=== PATIENT | female | born 1950 | race American Indian/Alaskan Native ===

== ENCOUNTER 2017-04-20 05:55 | Inpatient (IN) | payer MEDICARE ==
--- NOTE | 2017-04-14 09:56 | Anesthesia Consultation ---
Anesthesia Consult and Med Hx Date of service: 04/20/17 - Airway Anesthetic Teeth Evaluation: Dentures ROM Head & Neck: Adequate Mental/Hyoid Distance: Adequate Mallampati Class: Class III Intubation Access Assessment: Probably Good - Pulmonary Exam CTA: Yes - Cardiac Exam Cardiac Exam: RRR - Pre-Operative Health Status ASA Pre-Surgery Classification: ASA3 Proposed Anesthetic Plan: General, Epidural Nerve Block: adductor canal - Pulmonary Hx Smoking: Yes (STOPPED 2005- 03/02 PPD) Hx Asthma: No COPD: No Hx Sleep Apnea: No (JOEL PRE SCREEN HIGH RISK) - Cardiovascular System Hx Hypertension: Yes (X 5 YRS) Hx Coronary Artery Disease: Yes Hx Heart Attack/AMI: Yes (2006) Hx Percutaneous Transluminal Coronary Angioplasty (PTCA): Yes (STENT X 2006) Hx Peripheral Vascular Disease: Yes - Central Nervous System Hx Seizures: No CVA: No - Endocrine Hx Renal Disease: No Hx Insulin Dependent Diabetes: No Hx Non-Insulin Dependent Diabetes: No Hx Thyroid Disease: Yes Hx Hypothyroidism: Yes (ON MEDS, S/P THYROIDECTOMY) - Other Systems Hx Cancer: Yes (CERVICAL S/P CHEMO, RADIATION) Hx Obesity: Yes (MORBID BMI 42.6) - Additional Comments Anesthesia Medical History Comments: cardiac clearance and labs to be faxed. on Rivaroxaban to stop on 04/16
[2017-04-17 13:33] LABS: Bacteria,Urine 1+ /HPF (Negative); Bilirubin,Urine NEG (Negative); Blood,Urine NEG (Negative); Color,Urine Yellow (Yellow); Mucus,Urine FEW /HPF; Protein,Urine <15 mg/dL mg/dL (Negative)
[~2017-04-20 05:55] MED LIST: ANCEF/STERILE WATER 2 GM/20 ML IV NR
[2017-04-20] MEDS ORDERED: NACL BACTERIOSTATIC INFILTRATI ONE (06:30)
[2017-04-20] MEDS ORDERED: CLORPACTIN WCS-90 IR ONE ×2 (06:39→07:53)
[2017-04-20] MEDS ORDERED: MARCAINE 0.25% INFILTRATI ONE ×4 (06:39→09:45)
[2017-04-20] MEDS ORDERED: BACITRACIN ONE (06:39)
[2017-04-20] MEDS ORDERED: MORPHINE ONE (06:40)
[2017-04-20] MEDS ORDERED: TORADOL ONE (06:41)
[2017-04-20] MEDS ORDERED: TRANEXAMIC ACID ONE (06:41)
[2017-04-20] MEDS ORDERED: XYLOCAINE 1% 20 mL ONE (06:41)
[2017-04-20] MEDS ORDERED: POLYMYXIN B SULFATE IV ONE ×2 (06:42→07:53)
[2017-04-20] MEDS ORDERED: NACL 0.9% 500 ML 500 ML ONE (06:42)
[2017-04-20] MEDS ORDERED: NACL 0.9% 0 ML ONE (06:42)
[2017-04-20] MEDS ORDERED: ANCEF/STERILE WATER 2 GM/20 ML IV NR (07:00)
[2017-04-20] MEDS ORDERED: NACL 0.9% 100 ML ONE ×2 (07:05→07:07)
[2017-04-20 07:08] LABS: INR 0.99 (0.87-1.13)
[2017-04-20 07:09] LABS: Partial Thromboplastin Time 27.3 Sec. (24.2-36.6)
--- NOTE | 2017-04-20 07:23 | Anesthesia Day of Surgery ---
Anesthesia Day of Surgery - Day of Surgery Patient Examined: Yes Patient H&P Reviewed: Yes Patient is NPO: Yes Beta Blockers: Yes Cardiac Clearance: Yes (moderate risk)
[2017-04-20] MEDS ORDERED: DILAUDID IV PRN ×2 (07:25→08:45)
[2017-04-20] MEDS ORDERED: PERCOCET 5/325 PO PRN (07:25)
[2017-04-20] MEDS ORDERED: DIPRIVAN 10 MG/ML IV ONE (07:31)
[2017-04-20] MEDS ORDERED: XYLOCAINE MPF 2% ONE (07:31)
[2017-04-20] MEDS ORDERED: MARCAINE-EPI 0.5%-1:200,000 INFILTRATI ONE (07:33)
[2017-04-20] MEDS ORDERED: VERSED ONE (07:33)
[2017-04-20] MEDS ORDERED: TRANEXAMIC ACID IV ONE ×2 (07:53→09:50)
[2017-04-20] MEDS ORDERED: WATER FOR IRRIG STERILE IR ONE (07:53)
[2017-04-20] MEDS ORDERED: NACL 0.9% IR ONE ×2 (07:53)
[2017-04-20] MEDS ORDERED: TORADOL PO ONE ×2 (07:53→09:45)
[2017-04-20] MEDS ORDERED: BACITRACIN IR ONE (07:53)
[2017-04-20] MEDS ORDERED: NACL 0.9% IV ONE ×2 (07:53→09:45)
[2017-04-20] MEDS ORDERED: MORPHINE IM ONE ×2 (07:53→09:45)
[2017-04-20] MEDS ORDERED: ANCEF ONE (07:57)
[2017-04-20] MEDS ORDERED: ceFAZolin 1 GM in NACL 0.9% 20 ML IV NR (08:00)
[2017-04-20] MEDS ORDERED: ANCEF/STERILE WATER 2 GM/20 ML 2 GM/20 ML SYRINGE IV NR (08:00)
[2017-04-20] MEDS ORDERED: NACL 0.9% 1000 ML 1,000 ML IV SCH ×3 (08:00→09:00)
[2017-04-20] MEDS ORDERED: PEPCID IV NR ×2 (08:00)
[2017-04-20] MEDS ORDERED: VERSED IV NR ×2 (08:00)
[2017-04-20] MEDS ORDERED: ANCEF/NS 1 GM/50 ML 1 GM/50 ML BAG IV NR (08:00)
[2017-04-20] MEDS ORDERED: PEPCID IV ONE (08:16)
[2017-04-20] MEDS ORDERED: ZEMURON IV ONE (08:28)
[2017-04-20] MEDS ORDERED: ZOFRAN IV PRN ×2 (08:45→10:17)
[2017-04-20] MEDS ORDERED: NEO SYNEPHRINE/NS Syringe(OR USE) IV ONE (09:00)
[2017-04-20] MEDS ORDERED: ePHEDrine SULFATE ONE (10:09)
[2017-04-20] MEDS ORDERED: PHENERGAN PR PRN (10:17)
[2017-04-20] MEDS ORDERED: MILK OF MAGNESIA PO PRN (10:17)
[2017-04-20] MEDS ORDERED: SODIUM CHLORIDE FLUSH SYRINGE 10 ML IV NR (11:00)
--- NOTE | 2017-04-20 12:04 | XRay Report ---
RIGHT KNEE, 2 VIEWS History: Postop film. Findings: Right knee replacement changes are evident. The hardware appears well applied. No obvious fracture or malalignment. Anterior soft tissue swelling and gas are consistent with recent surgery. Impression: Stable appearance of the right knee prosthesis.
--- NOTE | 2017-04-20 13:07 | Post Anesthesia Evaluation ---
- Post Anesthesia Evaluation Patient Participated: Yes Airway Patent: Yes Stable Respiratory Function: Yes Nausea/Vomiting: No Temp > 96.8F: Yes Pain Manageable: Yes Adequeate Hydration: Yes Anesthesia Complications: No
[2017-04-20] MEDS: TORADOL IV SCH ×2 (13:27→18:00)
[2017-04-20] MEDS ORDERED: ceFAZolin 1 GM in NACL 0.9% 20 ML IV SCH (14:00)
[2017-04-20] MEDS ORDERED: ceFAZolin 2 GM in NACL 0.9% 100 ML IV SCH (14:00)
--- NOTE | 2017-04-20 14:05 | Operative Report ---
SURGEON: Justin Hidalgo MD NAVIGATION TEACHER: Casper Wayne, operative tech. PREOPERATIVE DIAGNOSES: 1. Severe advanced osteoarthritis of the right knee joint. 2. Synovial hypertrophy, synovial proliferation of the right knee joint. 3. Stiff right knee joint. 4. Morbid obesity. POSTOPERATIVE DIAGNOSES: 1. Severe advanced osteoarthritis of the right knee joint. 2. Synovial hypertrophy, synovial proliferation of the right knee joint. 3. Stiff right knee joint. 4. Morbid obesity. PROCEDURES PERFORMED: 1. Right total knee replacement, complex. 2. Partial synovectomy, right knee joint. COMPLICATIONS: None. BLOOD LOSS: Less than 50 mL. IMPLANTS USED: Gutierrez and Nephew Journey II knee cobalt chrome femoral component, size 4 right side. Prolong Poly-S, polyethylene liner 9 mm highly cross-linked posterior stabilized. Tibial tray size 4 asymmetric tibial base plate. Patella 32 mm, 3 post 7.5 mm thick. BRIEF HISTORY: The patient had a painful right knee, failed conservative treatment, opted to undergo surgical intervention, risks and benefit discussed, informed consent obtained for severe advanced osteoarthritis of the right knee with stiffness. DETAILS OF THE OPERATIVE REPORT: The patient was taken to the operating room. After smooth general endotracheal anesthesia, all the bony prominences were carefully padded, placed supine on the operating table. Thigh tourniquet was placed. Right knee, right lower extremity prepped and draped in sterile fashion. Leg elevated, tourniquet inflated to 350 mmHg. Longitudinal incision made over anterior aspect of the knee, exposing extensive mechanism. Arthrotomy was performed. Patella displaced laterally. Gross finding revealed severe advanced degenerative arthritis. Given the morbid obesity and significant stiffness in the knee and limited range of motion, the exposure is extensive and extensile and took additional time to get a proper exposure to do our necessary procedure, which added complexity to the to the case. The once necessary exposure was done, the subperiosteal dissection was continued around the proximal medial tibia, necessary soft tissue release was performed to correct the fixed angular deformity. Drill was used to open the femoral canal. Distal intramedullary femoral cutting guide was placed. Distal femur resected at 5 degree valgus angle. Epicondylar access apex was determined. Femoral sizing guide was placed, appropriate components selected. Anteroposterior condyles were then resected with oscillating saw. Extramedullary tibial cutting guide was placed, proximal tibia resected perpendicular to the long axis of tibia, minimum bone resection was performed. Lamina media consultant was placed between femur and tibia. Arthritic ACL and PCL ligaments were removed, medial and lateral meniscectomy performed. Gap balancing was then achieved by doing appropriate ligament release. Once this was done, tibia was prepared by tibial reaming and broach system by placing the tibial tray in proper position, proper external rotation. Femur was then prepared for the box through Gutierrez and Nephew trial femur using reaming and punch technique. Patella was prepared with patellar reaming system, prepared for 3 post patella. Synovium around the patella was excised. The patient had osteoporotic bone and care was taken to do it in a careful manner to prevent any intra-articular fractures. Trialing was then performed with 9 poly with great stability, full extension, full flexion, stable throughout range of motion, patella tracking central. Tourniquet released. Hemostasis was achieved after the real implants were placed. However, after the trialing was done and up to their satisfaction in excellent stability, full extension, full flexion, patellar tracking central, stable throughout range of motion, full range of motion was achieved. Before the trialing process, there were osteophytes in the posterior medial corner which was removed as well. Once satisfied with trialing, trial components were removed, thoroughly washed the knee area with antibiotic-soaked normal saline followed by normal saline. Cementing of the knee was performed. Tibia was cemented first, set in proper position, proper external rotation, impacted in place. Excess cement was removed. Femur was then cemented in proper position, proper external rotation, impacted in place. Excess cement was removed. Trial liner was then placed, cementing of the patella was performed, compressed in place. Excess cement was removed. Once this was done, real tibial articulating surface was implanted and locked in place. Knee moved through range of motion and found to be extremely stable. Tourniquet released. Hemostasis achieved with electrocautery. No active bleeder as such. Intraarticular, we used a gram of TXA mixed with 100 mL of normal saline into the knee as we could. We did not use IV TXA given her history of blood clot. We also used Clorpactin irrigation as well, after that we also washed with antibiotic-soaked normal saline followed by normal saline. After that, arthrotomy closed with combination of #2 Quill suture and 0 Vicryl suture, subcutaneous tissue was closed with 0 and 2-0 Vicryl interrupted sutures. Skin was closed with Monocryl. Aquacel dressing done. José Luis wrap applied. Knee immobilizer applied. The patient tolerated the procedure well, shifted to recovery room in stable condition. Sponge and needle count was correct. JOB# [id number] FARZANEH/TRACY
[2017-04-20] MEDS: ANCEF/STERILE WATER 2 GM/20 ML 2 GM/20 ML SYRINGE IV SCH ×2 (14:46→22:30)
[2017-04-20] MEDS: COLACE PO SCH (22:30)
[2017-04-20] MEDS: COREG PO SCH (22:30)
[2017-04-20] MEDS: LYRICA PO SCH (22:30)
[2017-04-21 04:56] LABS: Hematocrit 33.1 % (30.3-42.9); Hemoglobin 10.9 gm/dl (10.1-14.3)
[2017-04-21 05:16] LABS: BUN/Creatinine Ratio 16; Blood Urea Nitrogen 13 mg/dL (7-17); Calcium 6.9 mg/dL (8.4-10.2); Hemolysis Index 56; INR 1.03 (0.87-1.13)
[2017-04-21] MEDS: ANCEF/STERILE WATER 2 GM/20 ML 2 GM/20 ML SYRINGE IV SCH ×3 (05:22→21:52)
[2017-04-21] MEDS: TORADOL IV SCH ×4 (05:23→18:59)
[2017-04-21] MEDS: ZETIA PO SCH (09:42)
[2017-04-21] MEDS: COLACE PO SCH ×2 (09:42→21:43)
[2017-04-21] MEDS: SYNTHROID PO SCH (09:42)
[2017-04-21] MEDS: XARELTO PO SCH (09:43)
[2017-04-21] MEDS: COREG PO SCH ×2 (09:43→21:48)
[2017-04-21] MEDS: NORVASC PO SCH (09:43)
[2017-04-21] MEDS: ZESTRIL PO SCH (09:43)
[2017-04-21] MEDS: LYRICA PO SCH ×2 (09:43→21:43)
[2017-04-21] MEDS ORDERED: K-DUR PO SCH (10:00)
--- NOTE | 2017-04-21 17:36 | Progress Note ---
Subjective Date of service: 04/21/17 Interval history: patient doing well, no complaints knee dressing dry avss, NVI calf soft NT Pain under control no PT done today DC Planning if clear by medicine and PT Knee instructions was recommended by nurse to give her upon DC Objective Vital signs: Vital Signs - 12hr 04/21/17 04/21/17 04/21/17 07:27 09:43 10:00 Temperature 97.7 F Pulse Rate 63 Respiratory 20 Rate Blood Pressure 125/47 125/47 Blood Pressure [Left] O2 Sat by Pulse 100 98 Oximetry 04/21/17 04/21/17 12:16 16:00 Temperature 98.6 F 98.1 F Pulse Rate 69 64 Respiratory 20 20 Rate Blood Pressure Blood Pressure 116/44 140/49 [Left] O2 Sat by Pulse 100 99 Oximetry - Labs CBC & BMP: 04/21/17 04:19 04/21/17 04:19 Labs: Abnormal lab results 04/21/17 Range/Units 04:19 Potassium 5.3 H (3.6-5.0) mmol/L Chloride 109.4 H (98-107) mmol/L Calcium 6.9 L (8.4-10.2) mg/dL
[2017-04-21] MEDS: NORCO 10/325 PO PRN (19:39)
[2017-04-22] MEDS: TORADOL IV SCH ×2 (00:43→05:57)
[2017-04-22] MEDS: NORCO 10/325 PO PRN ×2 (04:16→10:11)
[2017-04-22] MEDS: ANCEF/STERILE WATER 2 GM/20 ML 2 GM/20 ML SYRINGE IV SCH (05:58)
--- NOTE | 2017-04-22 07:42 | Consultation ---
History of Present Illness - Reason for Consult Consult date: 04/21/17 Medical management Requesting physician: KYRA RUFFIN - History of Present Illness 66 YO Female with MO, HTN, CAD S/P Stent Placement, [place], PVD, JOEL, Hypothyroidism , Cervical Cancer S/P Chemo and Radiation Therapy admitted to [facility] for TKA. Consult placed for medical management. Pt seen and evaluated postoperatively. Pt denies fever, chills, CP, Palpitations, NVD, productive cough, weakness, changes in her speech. No reported postoperative nursing events. Past History Past Medical History: acute AK, CAD, cancer, hypertension, hypothyroidism, PVD, other (MO) Past Surgical History: total knee replacement, Other (stent placement) Social history: Family history: hypertension Medications and Allergies Allergies Allergy/AdvReac Type Severity Reaction Status Date / Time No Known Allergies Allergy Verified 05/26/15 21:05 Home Medications Medication Instructions Recorded Confirmed Last Taken Type Aspirin [Aspirin BABY CHEW TAB] 81 mg PO QDAY 05/26/15 04/10/17 11/06/16 History Rivaroxaban [Xarelto] 20 mg PO QDAY #30 tab 05/27/15 04/10/17 11/07/16 Rx AtorvaSTATin [Lipitor] 80 mg PO QHS 10/18/16 04/10/17 11/09/16 History Carvedilol [Coreg] 25 mg PO BID 10/18/16 04/10/17 11/10/16 04:00 History Ezetimibe [Zetia] 10 mg PO QDAY 10/18/16 04/10/17 11/09/16 History Furosemide [Lasix TAB] 40 mg PO Q48HR 10/18/16 04/10/17 11/09/16 History Levothyroxine [Synthroid] 125 mcg PO QAM 10/18/16 04/10/17 11/09/16 History Lisinopril [Zestril] 20 mg PO QDAY 10/18/16 04/10/17 11/10/16 04:00 History Potassium Chloride [K-Dur] 20 meq PO QDAY 10/18/16 04/10/17 11/09/16 History amLODIPine [Norvasc] 5 mg PO DAILY 10/18/16 04/10/17 11/09/16 History traMADol [Ultram] 50 mg PO Q6HR PRN 10/18/16 04/10/17 11/09/16 History Active Meds: Active Medications Acetaminophen/Hydrocodone Bitart ([place] 10/325) 1 each PO Q4H PRN PRN Reason: Pain, Moderate (4-6) Last Admin: 04/22/17 04:16 Dose: 1 each Amlodipine Besylate (Norvasc) 5 mg PO DAILY [facility] Last Admin: 04/21/17 09:43 Dose: 5 mg Atorvastatin Calcium (Lipitor) 80 mg PO QHS [facility] Last Admin: 04/21/17 21:42 Dose: 80 mg Carvedilol (Coreg) 25 mg PO BID [facility] Last Admin: 04/21/17 21:48 Dose: 25 mg Docusate Sodium (Colace) 100 mg PO BID [facility] Last Admin: 04/21/17 21:43 Dose: 100 mg Ezetimibe (Zetia) 10 mg PO QDAY [facility] Last Admin: 04/21/17 09:42 Dose: 10 mg Furosemide (Lasix) 40 mg PO Q48HR [facility] Hydromorphone HCl (Dilaudid) 0.5 mg IV Q10MIN PRN PRN Reason: Pain , Severe (7-10) Sodium Chloride (Nacl 0.9% 1000 Ml) 1,000 mls @ 100 mls/hr IV DIRECT [facility] Last Admin: 04/20/17 07:25 Dose: 100 mls/hr Sodium Chloride (Nacl 0.9% 1000 Ml) 1,000 mls @ 42 mls/hr IV DIRECT [facility] Last Admin: 04/20/17 13:26 Dose: 42 mls/hr Cefazolin Sodium (Ancef/Sterile Water 2 Gm/20 Ml) 2 gm in 20 mls @ 20 mls/10 min IV Q8HR [facility] Last Admin: 04/22/17 05:58 Dose: 20 mls/10 min Ketorolac Tromethamine (Toradol) 15 mg IV Q6HR [facility] Stop: 04/25/17 11:59 Last Admin: 04/22/17 05:57 Dose: 15 mg Levothyroxine Sodium (Synthroid) 125 mcg PO QAM [facility] Last Admin: 04/21/17 09:42 Dose: 125 mcg Lisinopril (Zestril) 20 mg PO QDAY [facility] Last Admin: 04/21/17 09:43 Dose: 20 mg Magnesium Hydroxide (Milk Of Magnesia) 30 ml PO Q4H PRN PRN Reason: Constipation Ondansetron HCl (Zofran) 4 mg IV ONCE PRN PRN Reason: Nausea And Vomiting Ondansetron HCl (Zofran) 4 mg IV Q8H PRN PRN Reason: Nausea And Vomiting Potassium Chloride (K-Dur) 20 meq PO QDAY [facility] Last Admin: 04/21/17 09:43 Dose: 20 meq Pregabalin (Lyrica) 75 mg PO BID [facility] Last Admin: 04/21/17 21:43 Dose: 75 mg Promethazine HCl (Phenergan) 25 mg CA Q6H PRN PRN Reason: Nausea And Vomiting Rivaroxaban (Xarelto) 20 mg PO QDAY [facility] PRN Reason: Protocol Last Admin: 04/21/17 09:43 Dose: 20 mg Review of Systems Constitutional: no weight loss, no weight gain, no fever, no chills Ears, nose, mouth and throat: no ear pain, no ear discharge, no tinnitis, no decreased hearing, no nose pain, no nasal congestion Breasts: no change in shape, no swelling, no mass Cardiovascular: no chest pain, no orthopnea, no palpitations, no rapid/ irregular heart beat Respiratory: no cough with sputum, no excessive sputum, no hemoptysis, no shortness of breath, no dyspnea on exertion Gastrointestinal: no abdominal pain, no nausea, no vomiting, no diarrhea, no constipation Genitourinary Female: no dysmenorrhea, no pelvic pain, no flank pain, no menorrhagia, no urinary frequency Rectal: no pain, no incontinence, no bleeding Musculoskeletal: no neck stiffness, no neck pain, no shooting arm pain, no arm numbness/tingling, no low back pain, no shooting leg pain, no leg numbness/ tingling, no redness of joints Integumentary: no rash, no pruritis, no redness, no sores Neurological: no head injury, no transient paralysis, no paralysis, no weakness , no parathesias, no numbness, no tingling, no seizures, no syncope Psychiatric: no anxiety, no memory loss, no change in sleep habits, no sleep disturbances, no insomnia, no hypersomnia, no change in appetite Endocrine: no cold intolerance, no heat intolerance, no polyphagia, no excessive thirst, no polydipsia Hematologic/Lymphatic: no easy bruising, no lymphadenopathy, no lymphedema Allergic/Immunologic: no urticaria, no allergic rhinitis, no persistent infections, no anaphylaxis, no angioedema Exam - Constitutional Vitals: Temp Pulse Resp BP Pulse Ox 99.7 F H 79 18 156/65 95 04/22/17 04:23 04/22/17 04:23 04/22/17 05:57 04/22/17 04:23 04/22/17 04:23 General appearance: Present: obese - EENT Eyes: Present: PERRL ENT: hearing intact, clear oral mucosa - Neck Neck: Present: supple, normal ROM - Respiratory Respiratory effort: normal Respiratory: bilateral: CTA - Cardiovascular Heart Sounds: Present: S1 & S2. Absent: rub, click - Extremities Extremities: no ischemia (Knee dressing in place), pulses symmetrical, No edema Peripheral Pulses: within normal limits - Abdominal General gastrointestinal: Present: soft, non-tender, non-distended, normal bowel sounds Female genitourinary: Present: normal - Integumentary Integumentary: Present: clear, warm, dry - Musculoskeletal Musculoskeletal: gait normal, strength equal bilaterally - Psychiatric Psychiatric: appropriate mood/affect, intact judgment & insight - Neurologic Neurologic: CNII-XII intact, moves all extremities Results - Labs CBC & Chem 7: 04/21/17 04:19 04/21/17 04:19 Assessment and Plan - Patient Problems (1) HTN (hypertension) Current Visit: No Status: Chronic Qualifiers: Hypertension type: essential hypertension Qualified Code(s): I10 - Essential (primary) hypertension Plan to address problem: Monitor BP q shift, continue medical management. (2) HLD (hyperlipidemia) Current Visit: No Status: Chronic Qualifiers: Hyperlipidemia type: mixed hyperlipidemia Qualified Code(s): E78.2 - Mixed hyperlipidemia Plan to address problem: Statin therapy, low cholesterol diet, (3) DVT prophylaxis Current Visit: No Status: Acute Plan to address problem: resume anticoagulation as per primary team, early ambulation, pulmonary toilet, incentive spirometry,
[2017-04-22 07:46] VITALS: BP 120/49
--- NOTE | 2017-04-22 09:20 | Progress Note ---
Assessment and Plan Assessment and plan: 66 YO Female with MO, HTN, CAD S/P Stent Placement, [place], PVD, JOEL, Hypothyroidism , Cervical Cancer S/P Chemo and Radiation Therapy admitted to [facility] for TKA. Consult placed for medical management. Pt seen and evaluated postoperatively. Pt denies fever, chills, CP, Palpitations, NVD, productive cough, weakness, changes in her speech. No reported postoperative nursing events. HTN (hypertension) Monitor BP q shift, continue medical management. HLD (hyperlipidemia) Statin therapy, low cholesterol diet, DVT prophylaxis resume anticoagulation as per primary team, early ambulation, pulmonary toilet, incentive spirometry, Hospitalist Physical - Constitutional Vitals: Temp Pulse Resp BP Pulse Ox 99.4 F 68 18 120/49 98 04/22/17 07:32 04/22/17 07:30 04/22/17 07:32 04/22/17 07:32 04/22/17 07:30 General appearance: Present: obese Results - Labs CBC & Chem 7: 04/21/17 04:19 04/21/17 04:19 Labs: Laboratory Last Values Hgb 10.9 gm/dl (10.1-14.3) 04/21/17 04:19 Hct 33.1 % (30.3-42.9) 04/21/17 04:19 PT 14.0 Sec. (12.2-14.9) 04/21/17 04:19 INR 1.03 (0.87-1.13) 04/21/17 04:19 APTT 27.3 Sec. (24.2-36.6) 04/20/17 06:30 Sodium 143 mmol/L (137-145) 04/21/17 04:19 Potassium 5.3 mmol/L (3.6-5.0) H 04/21/17 04:19 Chloride 109.4 mmol/L (98-107) H 04/21/17 04:19 Carbon Dioxide 22 mmol/L (22-30) 04/21/17 04:19 Anion Gap 17 mmol/L 04/21/17 04:19 BUN 13 mg/dL (7-17) 04/21/17 04:19 Creatinine 0.8 mg/dL (0.7-1.2) 04/21/17 04:19 Estimated GFR > 60 ml/min 04/21/17 04:19 BUN/Creatinine Ratio 16 % 04/21/17 04:19 Glucose 93 mg/dL (65-100) 04/21/17 04:19 Calcium 6.9 mg/dL (8.4-10.2) L 04/21/17 04:19 Urine Color Yellow (Yellow) 04/17/17 12:00 Urine Turbidity Clear (Clear) 04/17/17 12:00 Urine pH 5.0 (5.0-7.0) 04/17/17 12:00 Ur Specific [place] 1.024 (1.003-1.030) 04/17/17 12:00 Urine Protein <15 mg/dl mg/dL (Negative) 04/17/17 12:00 Urine Glucose (UA) Neg mg/dL (Negative) 04/17/17 12:00 Urine Ketones Neg mg/dL (Negative) 04/17/17 12:00 Urine Blood Neg (Negative) 04/17/17 12:00 Urine Nitrite Neg (Negative) 04/17/17 12:00 Urine Bilirubin Neg (Negative) 04/17/17 12:00 Urine Urobilinogen 2.0 mg/dL (<2.0) 04/17/17 12:00 Ur Leukocyte Esterase Neg (Negative) 04/17/17 12:00 Urine WBC (Auto) 1.0 /HPF (0.0-6.0) 04/17/17 12:00 Urine RBC (Auto) 4.0 /HPF (0.0-6.0) 04/17/17 12:00 U Epithel Cells (Auto) 9.0 /HPF (0-13.0) 04/17/17 12:00 Urine Bacteria (Auto) 1+ /HPF (Negative) 04/17/17 12:00 Urine Mucus Few /HPF 04/17/17 12:00 Blood Type AB POSITIVE 04/20/17 06:30 Antibody Screen Negative 04/20/17 06:30
[2017-04-22] MEDS ORDERED: LASIX PO SCH (10:00)
[2017-04-22] MEDS: ZETIA PO SCH (10:12)
[2017-04-22] MEDS: ZESTRIL PO SCH (10:12)
[2017-04-22] MEDS: COREG PO SCH (10:12)
[2017-04-22] MEDS: COLACE PO SCH (10:12)
[2017-04-22] MEDS: SYNTHROID PO SCH (10:12)
[2017-04-22] MEDS: XARELTO PO SCH (10:13)
[2017-04-22] MEDS: LYRICA PO SCH (10:13)
[2017-04-22] MEDS: NORVASC PO SCH (10:13)
== END 2017-04-22 11:10 | disposition home or self-care (01) | DRG 470 ==
LOC: 3A 05:55 → 3B-SURG 11:19
PROVIDERS: ADMIT Orthopaedic Surgery; ATTEND Orthopaedic Surgery
PROC: 0SRC069 Replacement of Right Knee Joint with Oxidized Zirconium on Polyethylene Synthetic Substitute, Cemented, Open Approach (ICD-10-PCS; principal; 2017-04-20)
DX: M17.11 Unilateral primary osteoarthritis, right knee (principal); Z68.41 Body mass index [BMI] 40.0-44.9, adult; I25.10 Atherosclerotic heart disease of native coronary artery without angina pectoris; Z96.659 Presence of unspecified artificial knee joint; E78.5 Hyperlipidemia, unspecified; M67.261 Synovial hypertrophy, not elsewhere classified, right lower leg; I73.9 Peripheral vascular disease, unspecified; E03.9 Hypothyroidism, unspecified; E66.01 Morbid (severe) obesity due to excess calories; G47.33 Obstructive sleep apnea (adult) (pediatric); Z92.3 Personal history of irradiation; I25.2 Old myocardial infarction; Z92.21 Personal history of antineoplastic chemotherapy; Z85.41 Personal history of malignant neoplasm of cervix uteri; Z82.49 Family history of ischemic heart disease and other diseases of the circulatory system; Z87.891 Personal history of nicotine dependence
CPT/HCPCS: 36415; 64450; 80048; 81001; 85014; 85018; 85610; 85730; 86850; 86900; 86901; 87086; 87116; 88305; 94760; A4217; A9270-GY; C1713; C1776; G8978-GP; G8979-GP; J0690; J1170; J1885; J2250; J2270; J2370; J2405; J2704; J7030; J7040

== ENCOUNTER 2020-06-24 06:46 | Day surgery (SDC) | payer MEDICARE ==
[2020-06-24 07:52] LABS: Basophils % (Auto) 0.5 % (0.0-1.8); Eosinophils # (Auto) 0.1 K/mm3 (0.0-0.4); Eosinophils % (Auto) 1.2 % (0.0-4.3); Hematocrit 33.1 % (30.3-42.9); Hemoglobin 10.9 gm/dl (10.1-14.3); Lymphocytes # (Auto) 1.5 K/mm3 (1.2-5.4); Lymphocytes % (Auto) 23.4 % (13.4-35.0); Mean Corpuscular HGB Conc 33 % (30-34); Mean Corpuscular Volume 95 fl (79-97); Monocytes # (Auto) 0.7 K/mm3 (0.0-0.8); Monocytes % (Auto) 10.7 % (0.0-7.3); Platelet Count 150 K/mm3 (140-440); Red Blood Count 3.48 M/mm3 (3.65-5.03); Red Cell Distribution Width 14.8 % (13.2-15.2)
[2020-06-24] MEDS ORDERED: SODIUM CHLORIDE 0.9% 500 ML 500 ML IV SCH (08:00)
[2020-06-24 08:01] LABS: INR 1.1 (0.87-1.13)
[2020-06-24 08:02] LABS: Partial Thromboplastin Time 27.8 Sec. (24.2-36.6)
[2020-06-24 08:54] LABS: Calcium 8.2 mg/dL (8.4-10.2)
[2020-06-24] MEDS: LIDOCAINE (2%) 20 MG/1 ML VIAL 20 ML MDV INFILTRATI ONE ×2 (09:32→09:44)
[2020-06-24] MEDS: MIDAZOLAM 2 MG/2 ML INJ ONE ×2 (09:32→09:41)
[2020-06-24] MEDS: fentaNYL 100 MCG/2 ML INJ ONE ×2 (09:32→09:41)
[2020-06-24] MEDS: HEPARIN 10,000 UNITS/10 ML VIAL ONE ×2 (09:33→09:46)
[2020-06-24] MEDS: VERAPAMIL 5 MG/2 ML INJ ONE ×2 (09:33→09:46)
[2020-06-24] MEDS: HEPARIN/NS 5000 UNIT/500ML 1,000 ML IR ONE ×2 (09:33→09:41)
[2020-06-24] MEDS: NITROGLYCERIN SYRINGE 3 ML ONE ×2 (09:34→09:46)
[2020-06-24] MEDS ORDERED: HYDROcodone/ACETAMINOPHEN 5-325 MG TAB PO PRN (10:00)
[2020-06-24] MEDS ORDERED: traMADol 50 MG TAB PO PRN (10:00)
--- NOTE | 2020-06-24 10:04 | Short Stay Summary ---
Short Stay Documentation Date of service: 06/24/20 - History H&P: obtained from office - Allergies and Medications Current Medications: Allergies No Known Allergies Allergy (Verified 05/26/15 21:05) Home Medications Medication Instructions Recorded Confirmed Last Taken Type Aspirin [Aspirin BABY CHEW TAB] 81 mg PO QDAY 05/26/15 06/24/20 06/24/20 History AtorvaSTATin [Lipitor] 80 mg PO QHS 10/18/16 06/24/20 06/23/20 History Ezetimibe [Zetia] 10 mg PO QDAY 10/18/16 06/24/20 06/23/20 History Furosemide [Lasix TAB] 20 mg PO Q48HR 10/18/16 06/24/20 06/23/20 History Levothyroxine [Synthroid] 112 mcg PO QAM 10/18/16 06/24/20 06/23/20 History amLODIPine [Norvasc] 5 mg PO DAILY 10/18/16 06/24/20 06/24/20 History carvediloL [Coreg] 25 mg PO BID 10/18/16 06/24/20 06/24/20 History lisinopriL [Zestril] 20 mg PO QDAY 10/18/16 06/24/20 06/24/20 History Apixaban [Eliquis] 2.5 mg PO BID 06/24/20 06/24/20 06/21/20 History Hydralazine HCl 50 mg PO TID 06/24/20 06/24/20 06/23/20 History Active Medications Sodium Chloride (Nacl 0.9% 500 Ml) 500 mls @ 50 mls/hr IV DIRECT [facility] Stop: 06/24/20 17:59 Last Admin: 06/24/20 08:08 Dose: 50 mls/hr Documented by: - Brief post op/procedure progress note Date of procedure: 06/24/20 Pre-op diagnosis: sob Post-op diagnosis: same Anesthesia: local Estimated blood loss: minimal Pathology: none - Disposition Condition at discharge: Good Disposition: DC-01 TO HOME OR SELFCARE - Discharge Diagnoses (1) Morbid (severe) obesity due to excess calories Status: Chronic (2) CAD (coronary artery disease) Status: Chronic Qualifiers: Coronary Disease-Associated Artery/Lesion type: [place] artery [place] vs. transplanted heart: [place] heart Associated angina: with stable angina Qualified Code(s): I25.118 - Atherosclerotic heart disease of [place] coronary artery with other forms of angina pectoris (3) SOB (shortness of breath) Status: Chronic (4) Pericardial effusion (noninflammatory) Status: Chronic (5) A-fib Status: Chronic Qualifiers: Atrial fibrillation type: paroxysmal Qualified Code(s): I48.0 - Paroxysmal atrial fibrillation (6) DVT (deep venous thrombosis) Status: Chronic Qualifiers: Chronicity: unspecified Comment: Has IVC filter and on Xarelto (7) HLD (hyperlipidemia) Status: Chronic Qualifiers: (8) HTN (hypertension) Status: Chronic Qualifiers: Hypertension type: essential hypertension Short Stay Discharge Plan Activity: advance as tolerated Follow up with: ETELVINA VALLEJO MD [Primary Care Provider] - 7 Days
--- NOTE | 2020-06-24 10:23 | Cardiac Catherization Report ---
DATE OF SERVICE: 06/24/2020 LEFT HEART CATHETERIZATION CLINICAL INFORMATION: This is a 70-year-old patient with morbid obesity, pericardial effusion, history of DVT, coronary artery disease 2007, [place] with hypertension, hyperlipidemia and persistent shortness of breath with a cardiac PET shows fixed anterior apical defect, is here for left heart catheterization. Left heart catheterization done with moderate sedation, start at 9:41, finish 9:55, 40 minutes of moderate sedation. DESCRIPTION OF PROCEDURE: Procedure was done via the right radial artery, sterile technique, local anesthesia. A 6 [place] radial sheath inserted. Left system JL3.5 catheter, left main is large and patent, bifurcates into a medium caliber. LAD is patent with mild luminal irregularities. Diagonal 1 and diagonal 2 small caliber, circumflex medium caliber vessel that goes into small to medium caliber, OM1 is patent. Mild luminal irregularities are seen. The JR4 is a large, dominant vessel with moderate severe tortuosity, proximally was patent. Mid to distal stent is patent. Mid portion, there is a 30% lesion prior to the stent. Distal is patent. PDA and PLV medium caliber and patent. LV gram done earlier shows normal LV function, LVEDP 21 mmHg. LV is 136, aortic is 136/60. No gradient across the aortic valve on pullback. A 5-Ukrainian catheters resulting in guidewires, a 6 [place] radial sheath was discontinued. Radial band applied. No hematoma, no bleeding. SUMMARY: Left main, patent, LAD patent. Mild luminal irregularity. Circumflex patent. OM1 patent. Mild luminal irregularities. RCA moderate severe tortuosity proximal patent, mid 20-30%, mid distal stent patent. PDA and PLV patent. Normal LV function. Normal left end diastolic pressure. RECOMMENDATIONS: Continue to treat the patient medically. Discussed this with the patient and the patient's family. TID: [id number] RECEIPT: [id number] AWAIS/DILEEP
[2020-06-24 13:11] VITALS: BP 136/54
--- NOTE | 2020-06-25 10:48 | Electrocardiograph Report ---
[facility] Test Date: 2020-06-24 Test Time: 08:49:44 Pat Name: SUDHIR DE LA TORRE Department: Room: Gender: F [employer] Blower: LUIS : 1950 Requested By: JOSR SIMON Order Number: [id number] Reading MD: Martha Quiñones Measurements Intervals [place] Rate: 70 P: 44 CO: 162 QRS: 22 QRSD: 101 T: -11 QT: 411 QTc: 444 Interpretive Statements Sinus rhythm Low voltage, extremity leads No previous ECG available for comparison Electronically Signed On 06-25-2020 10:48:29 EDT by Martha Quiñones
== END 2020-06-24 13:40 | disposition home or self-care (01) ==
LOC: CATHLABREC 06:46
PROVIDERS: ATTEND Internal Medicine
DX: R06.02 Shortness of breath (principal); E78.5 Hyperlipidemia, unspecified; I10 Essential (primary) hypertension; I25.10 Atherosclerotic heart disease of native coronary artery without angina pectoris; I25.2 Old myocardial infarction; I48.91 Unspecified atrial fibrillation; E66.01 Morbid (severe) obesity due to excess calories; I11.0 Hypertensive heart disease with heart failure; Z84.1 Family history of disorders of kidney and ureter; E03.9 Hypothyroidism, unspecified; Z68.42 Body mass index [BMI] 45.0-49.9, adult; Z79.899 Other long term (current) drug therapy; Z79.82 Long term (current) use of aspirin; Z87.891 Personal history of nicotine dependence; Z86.718 Personal history of other venous thrombosis and embolism; Z96.652 Presence of left artificial knee joint; Z90.710 Acquired absence of both cervix and uterus; Z98.890 Other specified postprocedural states; Z83.3 Family history of diabetes mellitus; Z82.49 Family history of ischemic heart disease and other diseases of the circulatory system
CPT/HCPCS: 36415; 80048; 85025; 85610; 85730; 93005; 93458; 99156; C1894; J1644; J2250; J3010; J7040; Q9967